=== PATIENT | male | born 1990 | race Caucasian/White ===

== ENCOUNTER 2017-11-05 12:11 | Emergency (ER) | payer BC, OTHER ==
[2017-11-05] MEDS: KETOROLAC 30 MG INJ IM (15:34)
== END 2017-11-05 16:20 | disposition home or self-care (01) ==
LOC: FTE 12:11
DX: M10.9 Gout, unspecified (principal)
CPT/HCPCS: 96372; 99284-25

== ENCOUNTER 2017-11-07 09:10 | Emergency (ER) | payer BC | END 2017-11-07 11:02 | disposition home or self-care (01) | LOC: FTE 09:10 | DX: M10.9 Gout, unspecified (principal) | CPT/HCPCS: 99283; Z7502 ==

== ENCOUNTER 2018-03-27 15:41 | Emergency (ER) | payer BC | END 2018-03-27 17:07 | disposition home or self-care (01) | LOC: FTE 15:41 | DX: M10.9 Gout, unspecified (principal) | CPT/HCPCS: 99284; Z7502 ==

== ENCOUNTER 2018-06-21 09:41 | Emergency (ER) | payer BC ==
[2018-06-21] MEDS: KETOROLAC 30 MG INJ IM (10:45)
== END 2018-06-21 12:15 | disposition home or self-care (01) ==
LOC: FTE 09:41
DX: M10.072 Idiopathic gout, left ankle and foot (principal)
CPT/HCPCS: 96372; 99284-25